=== PATIENT | male | born 1955 | race African-American/Black ===

== ENCOUNTER 2021-06-21 13:25 | Observation (INO) | payer OTHER ==
[2021-06-21 14:17] LABS: #Basophils 0.1 10x3/uL (0.0-0.2); #Eosinphils 0.5 10x3/uL (0.0-0.5); #Monocytes 0.6 10x3/uL (0.0-1.1); #Neutrophils 2.8 10x3/uL (1.5-8.4); %Basophils 1.1 % (0.0-2.0); %Eosinophils 8.9 % (0.0-6.0); %Lymphocytes 25.3 % (18.0-47.0); %Monocytes 10.8 % (0.0-10.0); %Neutrophils 53.7 % (40.0-75.0); Mean Corpuscular Volume 81.1 fl (81.2-95.1); Mean Platelet Volume 11.3 fl (7.4-10.4); Platelet Count 268 10x3/uL (150-450); RBC Distribution Width 14.9 % (11.5-14.5); Red Blood Cell (RBC) Count 5.39 10x6/uL (4.32-5.72); White Blood Cell (WBC) Count 5.3 10x3/uL (3.5-10.5)
[2021-06-21 14:34] LABS: ALT (SGPT) 14 U/L (8-55); AST (SGOT) 11 U/L (5-34); Albumin 3.7 g/dL (3.4-4.8); Alkaline Phosphatase 154 U/L (40-110); Anion Gap 13 mmol/L (10-20); BUN (Urea Nitrogen) 36 mg/dL (8.4-25.7); Bilirubin, Total 0.3 mg/dL (0.2-1.2); CK (CPK) 124 U/L (30-200); Calc. Creatinine Clearance 0 mL/min (70-130); Calcium 8.7 mg/dL (7.8-10.44); Carbon Dioxide 31 mmol/L (23-31); Chloride 95 mmol/L (98-107); Globulin 3.7 g/dL (2.4-3.5); Glucose 399 mg/dL (80-115); Lipase 23 U/L (8-78); Protein, Total 7.4 g/dL (5.8-8.1); Sodium 135 mmol/L (136-145)
[2021-06-21] MEDS ORDERED: Nitroglycerin 2% Ointment 1 INCH/1 GM Packet ONE (14:34)
[2021-06-21 15:59] LABS: SARS-CoV-2 NAA Rapid Test Not Detected (NotDetected)
[2021-06-21] MEDS ORDERED: Ondansetron PF 4 MG/2 ML Vial IVP PRN (16:45)
[2021-06-21] MEDS ORDERED: Nitroglycerin 0.4 MG TAB (25 Tab Bottle) SL PRN (16:45)
[2021-06-21] MEDS ORDERED: Dextrose 50% Abboject 50 ML SYRINGE SLOW IVP PRN (16:59)
[2021-06-21] MEDS ORDERED: HumaLOG 300 UNITS/3 ML VIAL SC PRN (16:59)
[2021-06-21] MEDS ORDERED: Dextrose 5% in Water 1,000 ML IV PRN (16:59)
[2021-06-21 17:28] LABS: Troponin I Less than 0.010 ng/mL (< 0.028)
[2021-06-21] MEDS ORDERED: hydrALAZINE 20 MG/ML VIAL SLOW IVP PRN (17:35)
[2021-06-21 20:14] VITALS: BMI 42.9
[2021-06-21 20:40] LABS: Troponin I Less than 0.010 ng/mL (< 0.028)
[2021-06-21] MEDS: Heparin 5,000 UNITS/ML VIAL SC SCH (21:00)
[2021-06-21] MEDS ORDERED: Metoprolol Tartrate 25 MG TAB PO SCH (21:00)
[2021-06-21] MEDS ORDERED: Atorvastatin Calcium 40 MG TAB PO SCH (21:00)
[2021-06-21] MEDS: hydrALAZINE 25 MG TAB PO SCH (21:14)
[2021-06-21] MEDS: HumaLOG 300 UNITS/3 ML VIAL SC PRN ×2 (21:23→21:25)
[2021-06-22 00:46] LABS: Bilirubin Neg (Negative); Blood, Urine Negative (Negative); Clarity Clear (Clear); Glucose, Urine (Dipstick) >=1000 mg/dL (Negative); Ketone, Urine Negative (Negative); Leukocyte Negative (Negative); Nitrite Negative (Negative); Protein, Urine (Dipstick) 30 mg/dl (Neg-Trace); Urobilinogen Normal mg/dL (Less than 2)
[2021-06-22 00:54] LABS: Bacteria/HPF None Seen HPF (None Seen); RBC/HPF 0-3 HPF (0-3); Squamous Epithelial None Seen HPF (0-3); WBC/HPF None Seen HPF (0-3)
[2021-06-22 00:55] LABS: Urine Culture Reflex No No
[2021-06-22] MEDS: Acetaminophen 325 MG TAB PO PRN ×2 (06:10→18:30)
[2021-06-22 06:56] LABS: Anion Gap 15 mmol/L (10-20); BUN (Urea Nitrogen) 29 mg/dL (8.4-25.7); Calc. Creatinine Clearance 94 mL/min (70-130); Calcium 9.2 mg/dL (7.8-10.44); Carbon Dioxide 25 mmol/L (23-31); Cardiac Risk 3.7 (Less than 4.5); Chloride 98 mmol/L (98-107); Cholesterol 209 mg/dl (< 200 Desired); Glucose 305 mg/dL (80-115); HDL Cholesterol 57 mg/dL (>60 Neg Risk); LDL Cholesterol, Calculated 121 mg/dL; Sodium 134 mmol/L (136-145); Triglycerides 156 mg/dL (Less than 150)
[2021-06-22] MEDS ORDERED: Furosemide 40 MG TAB PO SCH (07:30)
[2021-06-22] MEDS ORDERED: Aspirin Chewable 81 MG TAB PO SCH (09:00)
[2021-06-22] MEDS ORDERED: Amlodipine 5 MG TAB PO SCH (09:00)
[2021-06-22] MEDS ORDERED: Ezetimibe 10 MG TAB PO SCH (09:00)
[2021-06-22] MEDS: hydrALAZINE 25 MG TAB PO SCH (10:50)
[2021-06-22] MEDS: Carvedilol 25 MG TAB PO SCH ×2 (10:50→18:30)
[2021-06-22] MEDS: Heparin 5,000 UNITS/ML VIAL SC SCH ×2 (11:40→19:49)
[2021-06-22 11:59] VITALS: BP 142/75; TEMP 97.9
[2021-06-22 12:35] LABS: Hemoglobin A1c 12.6 % (4.0-6.0)
[2021-06-22 13:20] LABS: Sodium, Urine 114 mmol/L (Not Available); Urea Nitrogen, Random Urine 434 mg/dl
== END 2021-06-22 19:20 ==
LOC: CSHERS 13:25 → INTOOBSV 18:04 → CSHTELE 18:04 → EEVIPCON 18:04
PROVIDERS: ADMIT Internal Medicine; ATTEND Internal Medicine
DX: J96.21 Acute and chronic respiratory failure with hypoxia (principal); R07.9 Chest pain, unspecified; N17.9 Acute kidney failure, unspecified; E11.22 Type 2 diabetes mellitus with diabetic chronic kidney disease; I13.0 Hypertensive heart and chronic kidney disease with heart failure and stage 1 through stage 4 chronic kidney disease, or unspecified chronic kidney disease; N18.9 Chronic kidney disease, unspecified; I50.9 Heart failure, unspecified; Z79.899 Other long term (current) drug therapy; E78.5 Hyperlipidemia, unspecified; Z79.82 Long term (current) use of aspirin; Z79.4 Long term (current) use of insulin; Z87.891 Personal history of nicotine dependence; Z95.1 Presence of aortocoronary bypass graft; E66.01 Morbid (severe) obesity due to excess calories; Z20.822 Contact with and (suspected) exposure to COVID-19
CPT/HCPCS: 36415; 36416; 71045; 80048; 80053; 80061; 81001; 82550; 83036; 83690; 83880; 84300; 84484; 84540; 85025; 85379; 93005; 93306; J0360; J1644; J1815; U0002

== ENCOUNTER 2021-07-18 04:48 | Inpatient (IN) | payer OTHER ==
[2021-07-18 05:27] LABS: #Basophils 0.1 10x3/uL (0.0-0.2); #Eosinphils 0.3 10x3/uL (0.0-0.5); #Monocytes 0.8 10x3/uL (0.0-1.1); #Neutrophils 5.5 10x3/uL (1.5-8.4); %Basophils 0.6 % (0.0-2.0); %Lymphocytes 17.3 % (18.0-47.0); %Monocytes 9.4 % (0.0-10.0); %Neutrophils 68.3 % (40.0-75.0); Hemoglobin 12.8 g/dL (13.5-17.5); Mean Corpuscular HGB CONC 31.9 g/dL (32.0-36.0); Mean Corpuscular Hemoglobin 26.3 pg (27.0-33.0); Mean Corpuscular Volume 82.5 fl (81.2-95.1); Mean Platelet Volume 10.3 fl (7.4-10.4); Platelet Count 248 10x3/uL (150-450); RBC Distribution Width 15.3 % (11.5-14.5); Red Blood Cell (RBC) Count 4.86 10x6/uL (4.32-5.72)
[2021-07-18 05:42] LABS: ALT (SGPT) 15 U/L (8-55); AST (SGOT) 13 U/L (5-34); Albumin 3.4 g/dL (3.4-4.8); Alkaline Phosphatase 128 U/L (40-110); Anion Gap 14 mmol/L (10-20); BUN (Urea Nitrogen) 33 mg/dL (8.4-25.7); Bilirubin, Total 0.3 mg/dL (0.2-1.2); Calc. Creatinine Clearance 0 mL/min (70-130); Calcium 8.4 mg/dL (7.8-10.44); Carbon Dioxide 25 mmol/L (23-31); Chloride 106 mmol/L (98-107); Globulin 3.2 g/dL (2.4-3.5); Glucose 182 mg/dL (80-115); Magnesium 2.2 mg/dL (1.6-2.6); Potassium 4.2 mmol/L (3.5-5.1); Protein, Total 6.6 g/dL (5.8-8.1); Sodium 141 mmol/L (136-145)
[2021-07-18 06:05] LABS: SARS-CoV-2 NAA Rapid Test Not Detected (NotDetected)
[2021-07-18] MEDS ORDERED: Furosemide 40 MG/4 ML VIAL ONE (06:09)
[2021-07-18] MEDS ORDERED: diphenhydrAMINE 50 MG/ML VIAL ONE (06:49)
[2021-07-18] MEDS ORDERED: Acetaminophen 650 MG Suppository PR PRN (08:39)
[2021-07-18] MEDS ORDERED: Bisacodyl 5 MG TAB PO PRN (08:39)
[2021-07-18] MEDS ORDERED: Ondansetron ODT 4 MG TAB PO PRN (08:39)
[2021-07-18] MEDS ORDERED: Ondansetron PF 4 MG/2 ML Vial IVP PRN (08:39)
[2021-07-18] MEDS ORDERED: Bisacodyl 10 MG SUPP PR PRN (08:39)
[2021-07-18] MEDS ORDERED: Diltiazem 125 MG in Sodium Chloride 0.9% 100 ML IVPB SCH (08:45)
[2021-07-18] MEDS ORDERED: Dextrose 5% in Water 1,000 ML IV PRN (08:53)
[2021-07-18] MEDS ORDERED: Dextrose 50% Abboject 50 ML SYRINGE SLOW IVP PRN (08:53)
[2021-07-18] MEDS ORDERED: Enoxaparin Sodium 100 MG/ML SYRINGE ONE (09:20)
[2021-07-18 09:37] LABS: Troponin I Less than 0.010 ng/mL (< 0.028)
[2021-07-18] MEDS ORDERED: Famotidine 20 MG TAB PO SCH (11:00)
[2021-07-18] MEDS: Senokot S 8.6-50 MG TAB PO SCH (11:00)
[2021-07-18] MEDS: HYDROcodone/Acetaminophen 5/325 mg Tablet PO PRN ×2 (11:15→20:20)
[2021-07-18 11:23] LABS: Bilirubin Neg (Negative); Blood, Urine Negative (Negative); Clarity Clear (Clear); Glucose, Urine (Dipstick) Normal (Negative); Ketone, Urine Negative (Negative); Leukocyte Negative (Negative); Nitrite Negative (Negative); Urobilinogen Normal mg/dL (Less than 2)
[2021-07-18 11:27] LABS: Protein, Urine (Dipstick) 15 mg/dl (Neg-Trace); Urine Culture Reflex No No
[2021-07-18 11:31] LABS: Bacteria/HPF None Seen HPF (None Seen); RBC/HPF 0-3 HPF (0-3); Squamous Epithelial 0-3 HPF (0-3); WBC/HPF 0-3 HPF (0-3)
[2021-07-18 11:39] LABS: Legionella Urinary Ag Negative (Negative); Strep pneumo Urine Ag NEGATIVE (NEGATIVE)
[2021-07-18] MEDS ORDERED: Furosemide 100 MG/10 ML VIAL SLOW IVP SCH (14:00)
[2021-07-18] MEDS: HumaLOG 300 UNITS/3 ML VIAL SC PRN ×2 (16:28→20:21)
[2021-07-18] MEDS: Carvedilol 25 MG TAB PO SCH (16:29)
[2021-07-18] MEDS ORDERED: Docusate 100 MG CAP PO PRN (18:21)
[2021-07-18] MEDS: Apixaban 5 MG TAB PO SCH (20:14)
[2021-07-18] MEDS: Atorvastatin Calcium 40 MG TAB PO SCH (20:14)
[2021-07-18] MEDS: Famotidine 20 MG TAB PO SCH (20:15)
[2021-07-18] MEDS: Terazosin HCl 5 MG CAP PO SCH (20:16)
[2021-07-18] MEDS: NPH, Human Insulin Isophane 300 UNIT/3 ML VIAL SC SCH (20:21)
[2021-07-18] MEDS ORDERED: Citalopram 20 MG TAB PO SCH (21:00)
[2021-07-18] MEDS ORDERED: Nitroglycerin 2% Ointment 1 INCH/1 GM Packet TOP SCH (21:00)
[2021-07-18] MEDS ORDERED: hydrALAZINE 25 MG TAB PO SCH (21:00)
[2021-07-18] MEDS ORDERED: METHYLCELLULOSE 500 MG PO SCH (21:00)
[2021-07-19] MEDS: Famotidine/PF 20 mg/2ml Vial SLOW IVP SCH ×2 (01:57→14:56)
[2021-07-19] MEDS: Latanoprost 0.005% Ophth Soln 2.5 ml Bottle EA EYE SCH ×2 (01:58→20:40)
[2021-07-19] MEDS: Senokot S 8.6-50 MG TAB PO SCH ×3 (01:58→20:41)
[2021-07-19] MEDS: Hydrocerin (Eucerin) Cream 120 gm Jar TOP SCH ×2 (01:58→20:40)
[2021-07-19 04:39] LABS: CRP (Inflammatory) 7.95 mg/dL (= or < 0.5); Cardiac Risk 4.1 (Less than 4.5)
[2021-07-19] MEDS: Famotidine 20 MG TAB PO SCH ×2 (08:09→20:40)
[2021-07-19] MEDS: Carvedilol 25 MG TAB PO SCH ×2 (08:10→17:29)
[2021-07-19] MEDS: Aspirin 81 mg Enteric Coated Tablet PO SCH (08:10)
[2021-07-19] MEDS: Furosemide 40 MG TAB PO SCH (08:11)
[2021-07-19] MEDS: Apixaban 5 MG TAB PO SCH ×2 (08:11→20:39)
[2021-07-19] MEDS: HumaLOG 300 UNITS/3 ML VIAL SC PRN ×4 (08:24→20:59)
[2021-07-19] MEDS ORDERED: Amlodipine 5 MG TAB PO SCH (09:00)
[2021-07-19 09:01] LABS: #Basophils 0.1 10x3/uL (0.0-0.2); #Eosinphils 0.5 10x3/uL (0.0-0.5); #Monocytes 0.8 10x3/uL (0.0-1.1); #Neutrophils 4.8 10x3/uL (1.5-8.4); %Basophils 0.7 % (0.0-2.0); %Eosinophils 6.1 % (0.0-6.0); %Monocytes 10.9 % (0.0-10.0); %Neutrophils 63.2 % (40.0-75.0); Hemoglobin 13.3 g/dL (13.5-17.5); Mean Corpuscular HGB CONC 31.7 g/dL (32.0-36.0); Mean Corpuscular Hemoglobin 26.4 pg (27.0-33.0); Mean Corpuscular Volume 83.3 fl (81.2-95.1); Mean Platelet Volume 10.3 fl (7.4-10.4); Platelet Count 260 10x3/uL (150-450); RBC Distribution Width 15.1 % (11.5-14.5); Red Blood Cell (RBC) Count 5.04 10x6/uL (4.32-5.72); White Blood Cell (WBC) Count 7.5 10x3/uL (3.5-10.5)
[2021-07-19 09:08] LABS: Prothrombin Time 10.9 sec (9.5-12.1)
[2021-07-19] MEDS: NPH, Human Insulin Isophane 300 UNIT/3 ML VIAL SC SCH ×2 (09:25→21:00)
[2021-07-19 09:27] LABS: Anion Gap 12 mmol/L (10-20); BUN (Urea Nitrogen) 25 mg/dL (8.4-25.7); Calc. Creatinine Clearance 105 mL/min (70-130); Calcium 8.7 mg/dL (7.8-10.44); Carbon Dioxide 30 mmol/L (23-31); Chloride 103 mmol/L (98-107); Glucose 170 mg/dL (80-115); Potassium 4.1 mmol/L (3.5-5.1); Sodium 141 mmol/L (136-145)
[2021-07-19 13:58] LABS: Magnesium 2.2 mg/dL (1.6-2.6)
[2021-07-19 14:31] LABS: Hemoglobin A1c 12.2 % (4.0-6.0)
[2021-07-19] MEDS: HYDROcodone/Acetaminophen 5/325 mg Tablet PO PRN (17:32)
[2021-07-19] MEDS: Atorvastatin Calcium 40 MG TAB PO SCH (20:39)
[2021-07-19] MEDS: carBAMazepine 200 MG TAB PO SCH (20:40)
[2021-07-19] MEDS: Terazosin HCl 5 MG CAP PO SCH (20:41)
[2021-07-19] MEDS: risperiDONE 1 MG TAB PO SCH (20:41)
[2021-07-20 04:00] LABS: #Eosinphils 0.4 10x3/uL (0.0-0.5); #Monocytes 0.6 10x3/uL (0.0-1.1); #Neutrophils 4.8 10x3/uL (1.5-8.4); %Basophils 0.5 % (0.0-2.0); %Eosinophils 4.9 % (0.0-6.0); %Lymphocytes 20.2 % (18.0-47.0); %Monocytes 8.7 % (0.0-10.0); %Neutrophils 65.4 % (40.0-75.0); Mean Corpuscular HGB CONC 32.2 g/dL (32.0-36.0); Mean Corpuscular Hemoglobin 26.5 pg (27.0-33.0); Mean Corpuscular Volume 82.3 fl (81.2-95.1); Mean Platelet Volume 10.5 fl (7.4-10.4); Platelet Count 246 10x3/uL (150-450); Red Blood Cell (RBC) Count 4.91 10x6/uL (4.32-5.72); White Blood Cell (WBC) Count 7.3 10x3/uL (3.5-10.5)
[2021-07-20 04:13] LABS: Anion Gap 12 mmol/L (10-20); BUN (Urea Nitrogen) 26 mg/dL (8.4-25.7); Calc. Creatinine Clearance 96 mL/min (70-130); Calcium 8.8 mg/dL (7.8-10.44); Carbon Dioxide 28 mmol/L (23-31); Chloride 106 mmol/L (98-107); Glucose 149 mg/dL (80-115); Magnesium 2.1 mg/dL (1.6-2.6); Phosphorus 2.7 mg/dL (2.3-4.7); Sodium 142 mmol/L (136-145)
[2021-07-20 08:18] LABS: ALT (SGPT) 14 U/L (8-55); AST (SGOT) 11 U/L (5-34); Albumin 3.2 g/dL (3.4-4.8); Alkaline Phosphatase 109 U/L (40-110); Bilirubin, Direct 0.2 mg/dL (0.1-0.3); Bilirubin, Total 0.3 mg/dL (0.2-1.2); Protein, Total 6.7 g/dL (5.8-8.1)
[2021-07-20] MEDS: hydrALAZINE 25 MG TAB PO SCH ×2 (08:38→20:52)
[2021-07-20] MEDS: Carvedilol 25 MG TAB PO SCH ×2 (08:38→17:05)
[2021-07-20] MEDS: Senokot S 8.6-50 MG TAB PO SCH ×2 (08:39→20:54)
[2021-07-20] MEDS: Famotidine 20 MG TAB PO SCH ×2 (08:39→20:52)
[2021-07-20] MEDS: carBAMazepine 200 MG TAB PO SCH ×2 (08:39→20:51)
[2021-07-20] MEDS: Aspirin 81 mg Enteric Coated Tablet PO SCH (08:39)
[2021-07-20] MEDS: Apixaban 5 MG TAB PO SCH ×2 (08:39→20:51)
[2021-07-20] MEDS: NPH, Human Insulin Isophane 300 UNIT/3 ML VIAL SC SCH ×2 (08:39→21:01)
[2021-07-20] MEDS: Furosemide 40 MG TAB PO SCH (08:39)
[2021-07-20] MEDS: HYDROcodone/Acetaminophen 5/325 mg Tablet PO PRN ×3 (08:47→21:24)
[2021-07-20] MEDS: Atorvastatin Calcium 40 MG TAB PO SCH (20:51)
[2021-07-20] MEDS: Citalopram 20 MG TAB PO SCH (20:52)
[2021-07-20] MEDS: risperiDONE 1 MG TAB PO SCH (20:53)
[2021-07-20] MEDS: Latanoprost 0.005% Ophth Soln 2.5 ml Bottle EA EYE SCH (20:53)
[2021-07-20] MEDS: HumaLOG 300 UNITS/3 ML VIAL SC PRN (20:59)
[2021-07-20] MEDS: Hydrocerin (Eucerin) Cream 120 gm Jar TOP SCH (21:24)
[2021-07-20] MEDS: Terazosin HCl 5 MG CAP PO SCH (21:25)
[2021-07-21 04:20] LABS: #Basophils 0.1 10x3/uL (0.0-0.2); #Eosinphils 0.4 10x3/uL (0.0-0.5); #Monocytes 0.5 10x3/uL (0.0-1.1); #Neutrophils 3.3 10x3/uL (1.5-8.4); %Basophils 0.9 % (0.0-2.0); %Eosinophils 6.6 % (0.0-6.0); %Lymphocytes 26.7 % (18.0-47.0); %Neutrophils 56.6 % (40.0-75.0); Hemoglobin 12.9 g/dL (13.5-17.5); Mean Corpuscular HGB CONC 31.8 g/dL (32.0-36.0); Mean Corpuscular Hemoglobin 26.4 pg (27.0-33.0); Mean Platelet Volume 9.9 fl (7.4-10.4); Platelet Count 250 10x3/uL (150-450); RBC Distribution Width 15.2 % (11.5-14.5); Red Blood Cell (RBC) Count 4.89 10x6/uL (4.32-5.72); White Blood Cell (WBC) Count 5.9 10x3/uL (3.5-10.5)
[2021-07-21 04:41] LABS: Anion Gap 13 mmol/L (10-20); BUN (Urea Nitrogen) 27 mg/dL (8.4-25.7); Calc. Creatinine Clearance 100 mL/min (70-130); Calcium 8.7 mg/dL (7.8-10.44); Carbon Dioxide 27 mmol/L (23-31); Chloride 104 mmol/L (98-107); Glucose 293 mg/dL (80-115); Magnesium 2.1 mg/dL (1.6-2.6); Phosphorus 3.8 mg/dL (2.3-4.7); Potassium 4.1 mmol/L (3.5-5.1); Sodium 140 mmol/L (136-145)
[2021-07-21 05:15] VITALS: BMI 44.1
[2021-07-21] MEDS: HumaLOG 300 UNITS/3 ML VIAL SC PRN ×3 (05:20→16:24)
[2021-07-21] MEDS: HYDROcodone/Acetaminophen 5/325 mg Tablet PO PRN ×4 (05:22→21:41)
[2021-07-21] MEDS: Furosemide 40 MG/4 ML VIAL SLOW IVP SCH ×2 (05:56→14:16)
[2021-07-21] MEDS: Aspirin 81 mg Enteric Coated Tablet PO SCH (09:02)
[2021-07-21] MEDS: Senokot S 8.6-50 MG TAB PO SCH ×2 (09:02→21:45)
[2021-07-21] MEDS: hydrALAZINE 25 MG TAB PO SCH ×2 (09:02→21:45)
[2021-07-21] MEDS: carBAMazepine 200 MG TAB PO SCH ×3 (09:03→22:09)
[2021-07-21] MEDS: Allopurinol 100 MG TAB PO SCH (09:03)
[2021-07-21] MEDS: Famotidine 20 MG TAB PO SCH ×2 (09:04→21:46)
[2021-07-21] MEDS: Apixaban 5 MG TAB PO SCH ×2 (09:04→21:46)
[2021-07-21] MEDS: Carvedilol 25 MG TAB PO SCH ×2 (09:04→16:24)
[2021-07-21] MEDS: NPH, Human Insulin Isophane 300 UNIT/3 ML VIAL SC SCH ×2 (09:05→22:01)
[2021-07-21] MEDS ORDERED: Amiodarone 200 MG TAB PO SCH (11:30)
[2021-07-21] MEDS: Acetaminophen 325 MG TAB PO PRN (12:47)
[2021-07-21] MEDS: Terazosin HCl 5 MG CAP PO SCH (21:43)
[2021-07-21] MEDS: Hydrocerin (Eucerin) Cream 120 gm Jar TOP SCH (21:44)
[2021-07-21] MEDS: Atorvastatin Calcium 40 MG TAB PO SCH (21:45)
[2021-07-21] MEDS: risperiDONE 1 MG TAB PO SCH (21:46)
[2021-07-21] MEDS: Latanoprost 0.005% Ophth Soln 2.5 ml Bottle EA EYE SCH (21:47)
[2021-07-21] MEDS: Amiodarone 200 MG TAB PO SCH (21:47)
[2021-07-21] MEDS: Citalopram 20 MG TAB PO SCH (21:47)
[2021-07-22 04:37] LABS: Anion Gap 12 mmol/L (10-20); BUN (Urea Nitrogen) 31 mg/dL (8.4-25.7); Calc. Creatinine Clearance 87 mL/min (70-130); Calcium 8.5 mg/dL (7.8-10.44); Carbon Dioxide 27 mmol/L (23-31); Chloride 102 mmol/L (98-107); Glucose 309 mg/dL (80-115); Phosphorus 2.9 mg/dL (2.3-4.7); Potassium 3.9 mmol/L (3.5-5.1); Sodium 137 mmol/L (136-145)
[2021-07-22 04:44] LABS: #Eosinphils 0.4 10x3/uL (0.0-0.5); #Monocytes 0.6 10x3/uL (0.0-1.1); #Neutrophils 4.1 10x3/uL (1.5-8.4); %Basophils 0.6 % (0.0-2.0); %Eosinophils 6.1 % (0.0-6.0); %Lymphocytes 22.1 % (18.0-47.0); %Monocytes 9.1 % (0.0-10.0); %Neutrophils 61.8 % (40.0-75.0); Hemoglobin 12.5 g/dL (13.5-17.5); Mean Corpuscular HGB CONC 31.7 g/dL (32.0-36.0); Mean Corpuscular Hemoglobin 26.3 pg (27.0-33.0); Mean Corpuscular Volume 82.8 fl (81.2-95.1); Mean Platelet Volume 10.2 fl (7.4-10.4); Platelet Count 244 10x3/uL (150-450); RBC Distribution Width 15.1 % (11.5-14.5); Red Blood Cell (RBC) Count 4.76 10x6/uL (4.32-5.72); White Blood Cell (WBC) Count 6.7 10x3/uL (3.5-10.5)
[2021-07-22] MEDS: Furosemide 40 MG/4 ML VIAL SLOW IVP SCH (06:18)
[2021-07-22] MEDS: HumaLOG 300 UNITS/3 ML VIAL SC PRN ×4 (06:19→20:38)
[2021-07-22] MEDS: HYDROcodone/Acetaminophen 5/325 mg Tablet PO PRN ×4 (06:20→20:43)
[2021-07-22] MEDS: hydrALAZINE 25 MG TAB PO SCH ×2 (10:04→20:36)
[2021-07-22] MEDS: Senokot S 8.6-50 MG TAB PO SCH ×2 (10:04→20:37)
[2021-07-22] MEDS: Furosemide 40 MG TAB PO SCH ×2 (10:04→14:12)
[2021-07-22] MEDS: carBAMazepine 200 MG TAB PO SCH ×2 (10:05→20:35)
[2021-07-22] MEDS: Acetaminophen 325 MG TAB PO PRN (10:06)
[2021-07-22] MEDS: Aspirin 81 mg Enteric Coated Tablet PO SCH (10:07)
[2021-07-22] MEDS: Allopurinol 100 MG TAB PO SCH (10:07)
[2021-07-22] MEDS: Carvedilol 25 MG TAB PO SCH ×2 (10:08→17:35)
[2021-07-22] MEDS: Apixaban 5 MG TAB PO SCH ×2 (10:08→20:36)
[2021-07-22] MEDS: Amiodarone 200 MG TAB PO SCH ×2 (10:09→20:35)
[2021-07-22] MEDS: Famotidine 20 MG TAB PO SCH ×2 (10:09→20:37)
[2021-07-22] MEDS: NPH, Human Insulin Isophane 300 UNIT/3 ML VIAL SC SCH ×2 (10:12→20:39)
[2021-07-22] MEDS ORDERED: Milk Of Magnesia 30 ML UDCUP PO SCH (10:45)
[2021-07-22] MEDS: Terazosin HCl 5 MG CAP PO SCH (20:34)
[2021-07-22] MEDS: Atorvastatin Calcium 40 MG TAB PO SCH (20:35)
[2021-07-22] MEDS: risperiDONE 1 MG TAB PO SCH (20:36)
[2021-07-22] MEDS: Citalopram 20 MG TAB PO SCH (20:36)
[2021-07-22] MEDS: Hydrocerin (Eucerin) Cream 120 gm Jar TOP SCH (20:37)
[2021-07-22] MEDS: Latanoprost 0.005% Ophth Soln 2.5 ml Bottle EA EYE SCH (20:38)
[2021-07-22 20:52] VITALS: BP 144/65
[2021-07-22 23:18] VITALS: TEMP 97.2
== END 2021-07-22 20:45 | DRG 308 ==
LOC: SUATTDRO 04:48 → EEVIPCON 04:48 → CSHERS 04:48 → UNDOADMIN 09:51 → CSHIMCU 09:51 → CSHTELE 07-19 14:20 → CSHIMCU 07-19 14:20 → UNDOADMIN 07-19 17:15 → CSHIMCU 07-19 17:15 → CSHTELE 07-19 17:15 → CSHIMCU 07-19 17:18 → CSHTELE 07-20 07:28
PROVIDERS: ADMIT Family Medicine; ATTEND Family Medicine
DX: I48.92 Unspecified atrial flutter (principal); J96.01 Acute respiratory failure with hypoxia; G93.41 Metabolic encephalopathy; Z68.41 Body mass index [BMI] 40.0-44.9, adult; I13.0 Hypertensive heart and chronic kidney disease with heart failure and stage 1 through stage 4 chronic kidney disease, or unspecified chronic kidney disease; I50.32 Chronic diastolic (congestive) heart failure; Z20.822 Contact with and (suspected) exposure to COVID-19; F32.A Depression, unspecified; F20.9 Schizophrenia, unspecified; E11.22 Type 2 diabetes mellitus with diabetic chronic kidney disease; E66.01 Morbid (severe) obesity due to excess calories; N18.9 Chronic kidney disease, unspecified; E78.5 Hyperlipidemia, unspecified; I25.10 Atherosclerotic heart disease of native coronary artery without angina pectoris; R59.0 Localized enlarged lymph nodes; D64.9 Anemia, unspecified; J44.9 Chronic obstructive pulmonary disease, unspecified; E11.65 Type 2 diabetes mellitus with hyperglycemia; Z79.4 Long term (current) use of insulin; Z95.1 Presence of aortocoronary bypass graft; Z91.041 Radiographic dye allergy status; Z79.82 Long term (current) use of aspirin; Z79.899 Other long term (current) drug therapy; Z98.890 Other specified postprocedural states
CPT/HCPCS: 0240U; 36415; 36416; 71045; 71275; 74018; 80048; 80053; 80061; 80076; 81001; 83036; 83605; 83735; 83880; 84100; 84145; 84443; 84484; 85025; 85379; 85610; 86140; 87040; 87449; 87899; 93005; 93010; 94640; 94660; 94760; 96365; 96366; 96372; 96375; J1200; J1650; J1815; J1940; J7620

== ENCOUNTER 2021-07-25 08:09 | Emergency (ER) | payer OTHER ==
[2021-07-25 08:58] LABS: #Basophils 0.1 10x3/uL (0.0-0.2); #Eosinphils 0.6 10x3/uL (0.0-0.5); #Monocytes 0.9 10x3/uL (0.0-1.1); #Neutrophils 5.5 10x3/uL (1.5-8.4); %Basophils 0.7 % (0.0-2.0); %Eosinophils 6.6 % (0.0-6.0); %Lymphocytes 21.9 % (18.0-47.0); %Monocytes 9.6 % (0.0-10.0); %Neutrophils 60.9 % (40.0-75.0); Hemoglobin 12.8 g/dL (13.5-17.5); Mean Corpuscular HGB CONC 30.5 g/dL (32.0-36.0); Mean Corpuscular Hemoglobin 26.3 pg (27.0-33.0); Mean Corpuscular Volume 86.2 fl (81.2-95.1); Mean Platelet Volume 9.4 fl (7.4-10.4); Platelet Count 268 10x3/uL (150-450); RBC Distribution Width 15.2 % (11.5-14.5); Red Blood Cell (RBC) Count 4.86 10x6/uL (4.32-5.72); White Blood Cell (WBC) Count 9.1 10x3/uL (3.5-10.5)
[2021-07-25 09:16] LABS: ALT (SGPT) 17 U/L (8-55); AST (SGOT) 11 U/L (5-34); Albumin 3.6 g/dL (3.4-4.8); Alkaline Phosphatase 154 U/L (40-110); Anion Gap 17 mmol/L (10-20); BUN (Urea Nitrogen) 33 mg/dL (8.4-25.7); Bilirubin, Total 0.3 mg/dL (0.2-1.2); Calc. Creatinine Clearance 0 mL/min (70-130); Calcium 8.1 mg/dL (7.8-10.44); Carbon Dioxide 20 mmol/L (23-31); Chloride 106 mmol/L (98-107); Globulin 3.3 g/dL (2.4-3.5); Glucose 208 mg/dL (80-115); Potassium 4.3 mmol/L (3.5-5.1); Protein, Total 6.9 g/dL (5.8-8.1); Sodium 139 mmol/L (136-145)
[2021-07-25 10:16] LABS: SARS-CoV-2 NAA Rapid Test Not Detected (NotDetected)
[2021-07-25] MEDS ORDERED: Furosemide 100 MG/10 ML VIAL ONE (10:57)
== END 2021-07-25 16:44 | disposition short-term general hospital (02) ==
LOC: CSHERS 08:09
DX: I13.0 Hypertensive heart and chronic kidney disease with heart failure and stage 1 through stage 4 chronic kidney disease, or unspecified chronic kidney disease (principal); I50.41 Acute combined systolic (congestive) and diastolic (congestive) heart failure; N18.9 Chronic kidney disease, unspecified; N17.9 Acute kidney failure, unspecified; E87.70 Fluid overload, unspecified; I25.10 Atherosclerotic heart disease of native coronary artery without angina pectoris; J44.9 Chronic obstructive pulmonary disease, unspecified; Z86.73 Personal history of transient ischemic attack (TIA), and cerebral infarction without residual deficits; E11.9 Type 2 diabetes mellitus without complications; E78.5 Hyperlipidemia, unspecified; Z79.899 Other long term (current) drug therapy; Z79.82 Long term (current) use of aspirin; Z79.4 Long term (current) use of insulin; Z20.822 Contact with and (suspected) exposure to COVID-19
CPT/HCPCS: 36415; 71045; 80053; 83880; 84484; 85025; 93005; 96374; J1940; U0002

== ENCOUNTER 2021-09-15 23:31 | Observation (INO) | payer OTHER ==
[2021-09-15] MEDS ORDERED: Furosemide 40 MG/4 ML VIAL ONE (23:57)
[2021-09-16 00:22] LABS: ALT (SGPT) 7 U/L (8-55); AST (SGOT) 10 U/L (5-34); Albumin 3.7 g/dL (3.4-4.8); Alkaline Phosphatase 97 U/L (40-110); Anion Gap 12 mmol/L (10-20); BUN (Urea Nitrogen) 34 mg/dL (8.4-25.7); Bilirubin, Total 0.4 mg/dL (0.2-1.2); Calc. Creatinine Clearance 0 mL/min (70-130); Calcium 8.6 mg/dL (7.8-10.44); Carbon Dioxide 29 mmol/L (23-31); Chloride 104 mmol/L (98-107); Glucose 96 mg/dL (80-115); Magnesium 2.1 mg/dL (1.6-2.6); Potassium 3.4 mmol/L (3.5-5.1); Protein, Total 6.7 g/dL (5.8-8.1); Sodium 142 mmol/L (136-145)
[2021-09-16 00:36] LABS: #Eosinphils 0.5 10x3/uL (0.0-0.5); #Monocytes 0.8 10x3/uL (0.0-1.1); #Neutrophils 4.8 10x3/uL (1.5-8.4); %Basophils 0.6 % (0.0-2.0); %Eosinophils 6.6 % (0.0-6.0); %Lymphocytes 15.4 % (18.0-47.0); %Monocytes 11.1 % (0.0-10.0); %Neutrophils 65.9 % (40.0-75.0); Hemoglobin 12.4 g/dL (13.5-17.5); Mean Corpuscular Hemoglobin 26.2 pg (27.0-33.0); Mean Corpuscular Volume 81.9 fl (81.2-95.1); Mean Platelet Volume 9.5 fl (7.4-10.4); Platelet Count 317 10x3/uL (150-450); RBC Distribution Width 15.2 % (11.5-14.5); Red Blood Cell (RBC) Count 4.74 10x6/uL (4.32-5.72); White Blood Cell (WBC) Count 7.3 10x3/uL (3.5-10.5)
[2021-09-16 01:03] LABS: SARS-CoV-2 NAA Rapid Test Not Detected (NotDetected)
[2021-09-16] MEDS ORDERED: Acetaminophen 500 MG TAB ONE (01:29)
[2021-09-16 03:25] VITALS: BMI 47.5
[2021-09-16] MEDS ORDERED: Nitroglycerin 0.4 MG TAB (25 Tab Bottle) SL PRN (03:25)
[2021-09-16] MEDS ORDERED: Potassium Chloride 20 MEQ TAB PO SCH (03:30)
[2021-09-16 05:25] LABS: INR-International Normal Ratio 1.1; Prothrombin Time 12.1 sec (9.5-12.1)
[2021-09-16 05:34] LABS: Troponin I 0.025 ng/mL (< 0.028)
[2021-09-16 06:04] LABS: Magnesium 2.1 mg/dL (1.6-2.6)
[2021-09-16] MEDS: Allopurinol 100 MG TAB PO SCH (08:11)
[2021-09-16] MEDS: Amiodarone 200 MG TAB PO SCH ×2 (08:11→21:03)
[2021-09-16] MEDS: Docusate 100 MG CAP PO SCH ×2 (08:11→21:04)
[2021-09-16] MEDS: hydrALAZINE 25 MG TAB PO SCH ×2 (08:12→21:04)
[2021-09-16] MEDS: diphenhydrAMINE 25 MG CAP PO SCH ×2 (08:12→21:03)
[2021-09-16] MEDS: Amlodipine 5 MG TAB PO SCH (08:12)
[2021-09-16] MEDS: Loratadine 10 MG TAB PO SCH (08:12)
[2021-09-16] MEDS: Lisinopril 5 MG TAB PO SCH (08:12)
[2021-09-16] MEDS: Aspirin 81 mg Enteric Coated Tablet PO SCH (08:12)
[2021-09-16] MEDS: Divalproex Sodium 250 MG (DR) TAB PO SCH ×2 (08:13→21:03)
[2021-09-16 08:23] LABS: #Basophils 0.1 10x3/uL (0.0-0.2); #Eosinphils 0.5 10x3/uL (0.0-0.5); #Neutrophils 4.3 10x3/uL (1.5-8.4); %Basophils 0.9 % (0.0-2.0); %Eosinophils 6.8 % (0.0-6.0); %Lymphocytes 17.6 % (18.0-47.0); %Monocytes 13.9 % (0.0-10.0); %Neutrophils 60.4 % (40.0-75.0); Hemoglobin 12.1 g/dL (13.5-17.5); Mean Corpuscular HGB CONC 31.4 g/dL (32.0-36.0); Mean Corpuscular Hemoglobin 26.3 pg (27.0-33.0); Mean Corpuscular Volume 83.7 fl (81.2-95.1); Mean Platelet Volume 10.1 fl (7.4-10.4); Platelet Count 306 10x3/uL (150-450); RBC Distribution Width 15.7 % (11.5-14.5); White Blood Cell (WBC) Count 7.1 10x3/uL (3.5-10.5)
[2021-09-16 08:37] LABS: Anion Gap 11 mmol/L (10-20); BUN (Urea Nitrogen) 34 mg/dL (8.4-25.7); Calc. Creatinine Clearance 81 mL/min (70-130); Calcium 8.6 mg/dL (7.8-10.44); Carbon Dioxide 31 mmol/L (23-31); Chloride 104 mmol/L (98-107); Glucose 89 mg/dL (80-115); Potassium 4.3 mmol/L (3.5-5.1); Sodium 142 mmol/L (136-145)
[2021-09-16 08:42] LABS: Troponin I 0.018 ng/mL (< 0.028)
[2021-09-16] MEDS ORDERED: Bumetanide 1 MG TAB PO SCH (09:00)
[2021-09-16] MEDS ORDERED: Polyethylene Glycol 3350 17 GM Packet PO PRN (10:27)
[2021-09-16] MEDS ORDERED: Docusate 100 MG CAP PO SCH (11:00)
[2021-09-16] MEDS ORDERED: Polyethylene Glycol 3350 17 GM Packet PO SCH (11:00)
[2021-09-16] MEDS ORDERED: HYDROcodone/Acetaminophen 5/325 mg Tablet PO PRN (16:55)
[2021-09-16] MEDS ORDERED: Warfarin Sodium 2.5 MG TAB PO SCH (17:00)
[2021-09-16] MEDS: Acetaminophen 325 MG TAB PO PRN (17:10)
[2021-09-16] MEDS ORDERED: Latanoprost 0.005% Ophth Soln 2.5 ml Bottle EA EYE SCH (21:00)
[2021-09-16] MEDS ORDERED: Citalopram 20 MG TAB PO SCH (21:00)
[2021-09-16] MEDS ORDERED: Atorvastatin Calcium 40 MG TAB PO SCH (21:00)
[2021-09-16] MEDS ORDERED: Terazosin HCl 5 MG CAP PO SCH (21:00)
[2021-09-16] MEDS ORDERED: MINERAL OIL TOP SCH (21:00)
[2021-09-16] MEDS ORDERED: LANOLIN TOP SCH (21:00)
[2021-09-16] MEDS ORDERED: risperiDONE 1 MG TAB PO SCH (21:00)
[2021-09-17 05:00] LABS: INR-International Normal Ratio 1.1; Prothrombin Time 11.9 sec (9.5-12.1)
[2021-09-17 05:01] LABS: Anion Gap 12 mmol/L (10-20); BUN (Urea Nitrogen) 36 mg/dL (8.4-25.7); Calc. Creatinine Clearance 79 mL/min (70-130); Calcium 8.6 mg/dL (7.8-10.44); Carbon Dioxide 28 mmol/L (23-31); Chloride 105 mmol/L (98-107); Glucose 229 mg/dL (80-115); Potassium 4.5 mmol/L (3.5-5.1); Sodium 140 mmol/L (136-145)
[2021-09-17] MEDS ORDERED: Sodium Chloride 0.9% 1,000 ML IV SCH (07:45)
[2021-09-17] MEDS ORDERED: diphenhydrAMINE 25 MG CAP PO PRN (07:47)
[2021-09-17] MEDS: Amiodarone 200 MG TAB PO SCH (08:25)
[2021-09-17] MEDS: Loratadine 10 MG TAB PO SCH (08:25)
[2021-09-17] MEDS: Lisinopril 5 MG TAB PO SCH (08:26)
[2021-09-17] MEDS: Allopurinol 100 MG TAB PO SCH (08:26)
[2021-09-17] MEDS: Docusate 100 MG CAP PO SCH (08:26)
[2021-09-17] MEDS: Aspirin 81 mg Enteric Coated Tablet PO SCH (08:27)
[2021-09-17] MEDS: hydrALAZINE 25 MG TAB PO SCH (08:27)
[2021-09-17] MEDS: Amlodipine 5 MG TAB PO SCH (08:27)
[2021-09-17] MEDS: Divalproex Sodium 250 MG (DR) TAB PO SCH (08:28)
[2021-09-17] MEDS ORDERED: Docusate 100 MG CAP PO SCH (09:00)
[2021-09-17] MEDS: Acetaminophen 325 MG TAB PO PRN (15:39)
[2021-09-17 16:40] VITALS: BP 130/49; TEMP 98.7
[2021-09-17] MEDS ORDERED: Warfarin Sodium 2.5 MG TAB PO SCH (17:00)
[2021-09-17] MEDS ORDERED: Bumetanide 1 MG TAB PO SCH (21:00)
== END 2021-09-17 17:44 ==
LOC: CSHERS 23:31 → INTOOBSV 09-16 02:50 → EEVIPCON 09-16 02:50 → CSHICU 09-16 02:50
PROVIDERS: ADMIT Family Medicine; ATTEND Internal Medicine
DX: R55 Syncope and collapse (principal); E11.649 Type 2 diabetes mellitus with hypoglycemia without coma; I11.0 Hypertensive heart disease with heart failure; I50.9 Heart failure, unspecified; I25.10 Atherosclerotic heart disease of native coronary artery without angina pectoris; J44.9 Chronic obstructive pulmonary disease, unspecified; Z79.01 Long term (current) use of anticoagulants; E78.2 Mixed hyperlipidemia; G47.33 Obstructive sleep apnea (adult) (pediatric); Z79.899 Other long term (current) drug therapy; Z79.82 Long term (current) use of aspirin; Z99.81 Dependence on supplemental oxygen; Z95.1 Presence of aortocoronary bypass graft; Z87.891 Personal history of nicotine dependence; E87.6 Hypokalemia; F25.9 Schizoaffective disorder, unspecified; N40.0 Benign prostatic hyperplasia without lower urinary tract symptoms; Z20.822 Contact with and (suspected) exposure to COVID-19
CPT/HCPCS: 36415; 36416; 70450; 71045; 72125; 80048; 80053; 83735; 83880; 84484; 85025; 85610; 93005; 93010; 93306; 94660; 94760; 96374; G0378; J1940; J7050; U0002

== ENCOUNTER 2021-09-29 16:04 | Emergency (ER) | payer OTHER ==
[2021-09-29] MEDS ORDERED: Magnesium 2 GM/50 ML BAG (IN WATER) ONE (16:22)
[2021-09-29] MEDS ORDERED: predniSONE 20 MG TAB ONE (16:22)
[2021-09-29] MEDS ORDERED: Furosemide 40 MG/4 ML VIAL ONE (16:25)
[2021-09-29 16:34] LABS: Actual Bicarbonate (HCO3v) 27 mEq/L (22-28); Base Excess 2.6 mEq/L (-2.0 to +3.0); Calcium, Ionized (venous) 1.03 mmol/L (1.16-1.32); Chloride (VBG) 103 mmol/L (98-106); Hemoglobin (Hb) 12.8 g/dL (13.1-17.2); Potassium (VBG) 3.82 mmol/L (3.70-5.30); Puncture Site Other Site; RapidComm Collect By CBN; Sodium 138.3 mmol/L (133-146); pH (venous) 7.43 (7.32-7.43)
[2021-09-29 16:43] LABS: #Basophils 0.1 10x3/uL (0.0-0.2); #Eosinphils 0.1 10x3/uL (0.0-0.5); #Monocytes 1.1 10x3/uL (0.0-1.1); #Neutrophils 5.3 10x3/uL (1.5-8.4); %Basophils 0.7 % (0.0-2.0); %Eosinophils 1.8 % (0.0-6.0); %Lymphocytes 12.6 % (18.0-47.0); %Monocytes 14.6 % (0.0-10.0); %Neutrophils 69.9 % (40.0-75.0); Hemoglobin 11.5 g/dL (13.5-17.5); Mean Corpuscular Hemoglobin 25.2 pg (27.0-33.0); Mean Corpuscular Volume 81.4 fl (81.2-95.1); Platelet Count 306 10x3/uL (150-450); RBC Distribution Width 16.6 % (11.5-14.5); Red Blood Cell (RBC) Count 4.56 10x6/uL (4.32-5.72); White Blood Cell (WBC) Count 7.6 10x3/uL (3.5-10.5)
[2021-09-29 16:50] LABS: INR-International Normal Ratio 1.4; PTT 35.3 sec (22.0-33.0); Prothrombin Time 15.4 sec (9.5-12.1)
[2021-09-29 17:53] LABS: ALT (SGPT) 38 U/L (8-55); AST (SGOT) 26 U/L (5-34); Albumin 3.9 g/dL (3.4-4.8); Alkaline Phosphatase 94 U/L (40-110); Anion Gap 14 mmol/L (10-20); BUN (Urea Nitrogen) 39 mg/dL (8.4-25.7); Bilirubin, Total 0.5 mg/dL (0.2-1.2); Calc. Creatinine Clearance 0 mL/min (70-130); Calcium 8.5 mg/dL (7.8-10.44); Carbon Dioxide 28 mmol/L (23-31); Chloride 103 mmol/L (98-107); Globulin 3.1 g/dL (2.4-3.5); Glucose 71 mg/dL (80-115); Potassium 3.9 mmol/L (3.5-5.1); Sodium 141 mmol/L (136-145)
[2021-09-29 18:15] LABS: CKMB 1.9 ng/mL (0-6.6)
[2021-09-29 18:16] LABS: SARS-CoV-2 NAA Rapid Test Not Detected (NotDetected)
[2021-09-29] MEDS ORDERED: Nitroglycerin 2% Ointment 1 INCH/1 GM Packet ONE (18:23)
[2021-09-29] MEDS ORDERED: Albuterol Sulfate 2.5 mg/3 ml Neb ONE (20:34)
[2021-09-29] MEDS ORDERED: Aspirin Chewable 81 MG TAB ONE (20:55)
[2021-09-29] MEDS ORDERED: Enoxaparin Sodium 100 MG/ML SYRINGE ONE (21:53)
== END 2021-09-30 00:32 | disposition short-term general hospital (02) ==
LOC: CSHERS 16:04 → EEVIPCON 16:04 → CSHERS 09-30 00:32
DX: I13.0 Hypertensive heart and chronic kidney disease with heart failure and stage 1 through stage 4 chronic kidney disease, or unspecified chronic kidney disease (principal); I50.9 Heart failure, unspecified; R09.02 Hypoxemia; R06.03 Acute respiratory distress; I48.91 Unspecified atrial fibrillation; I25.10 Atherosclerotic heart disease of native coronary artery without angina pectoris; J44.9 Chronic obstructive pulmonary disease, unspecified; N18.9 Chronic kidney disease, unspecified; G47.30 Sleep apnea, unspecified; E78.5 Hyperlipidemia, unspecified; Z86.73 Personal history of transient ischemic attack (TIA), and cerebral infarction without residual deficits; Z79.82 Long term (current) use of aspirin; Z79.4 Long term (current) use of insulin; Z79.01 Long term (current) use of anticoagulants; Z79.51 Long term (current) use of inhaled steroids; Z79.899 Other long term (current) drug therapy
CPT/HCPCS: 36415; 71045; 80053; 82553; 82805; 83880; 84484; 85025; 85610; 85730; 93005; 94640; 94660; 96365; 96372; 96375; J1650; J1940; J3475; J7512; J7611; J7620; U0002

== ENCOUNTER 2022-01-08 05:13 | Inpatient (IN) | payer OTHER ==
[2022-01-08] MEDS ORDERED: Furosemide 100 MG/10 ML VIAL ONE (05:32)
[2022-01-08 06:02] LABS: #Basophils 0.1 10x3/uL (0.0-0.2); #Eosinphils 0.4 10x3/uL (0.0-0.5); #Monocytes 0.8 10x3/uL (0.0-1.1); #Neutrophils 3.9 10x3/uL (1.5-8.4); %Basophils 0.7 % (0.0-2.0); %Eosinophils 5.9 % (0.0-6.0); %Lymphocytes 23.5 % (18.0-47.0); %Monocytes 12.3 % (0.0-10.0); %Neutrophils 57.5 % (40.0-75.0); Hemoglobin 11.8 g/dL (13.5-17.5); Mean Corpuscular HGB CONC 31.5 g/dL (32.0-36.0); Mean Corpuscular Hemoglobin 23.8 pg (27.0-33.0); Mean Corpuscular Volume 75.8 fl (81.2-95.1); Platelet Count 318 10x3/uL (150-450); RBC Distribution Width 19.9 % (11.5-14.5); Red Blood Cell (RBC) Count 4.95 10x6/uL (4.32-5.72); White Blood Cell (WBC) Count 6.7 10x3/uL (3.5-10.5)
[2022-01-08 06:14] LABS: ALT (SGPT) 37 U/L (8-55); AST (SGOT) 24 U/L (5-34); Albumin 3.5 g/dL (3.4-4.8); Alkaline Phosphatase 126 U/L (40-110); Anion Gap 12 mmol/L (10-20); BUN (Urea Nitrogen) 35 mg/dL (8.4-25.7); Bilirubin, Total 0.3 mg/dL (0.2-1.2); Calc. Creatinine Clearance 0 mL/min (70-130); Calcium 8.8 mg/dL (7.8-10.44); Carbon Dioxide 31 mmol/L (23-31); Chloride 102 mmol/L (98-107); Estimated GFR 33; Globulin 3.8 g/dL (2.4-3.5); Glucose 86 mg/dL (80-115); Potassium 3.7 mmol/L (3.5-5.1); Protein, Total 7.3 g/dL (5.8-8.1); Sodium 141 mmol/L (136-145)
[2022-01-08 06:28] LABS: SARS-CoV-2 NAA Rapid Test Not Detected (NotDetected)
[2022-01-08 07:29] LABS: INR-International Normal Ratio 2.9; PTT 40.1 sec (22.0-33.0); Prothrombin Time 29.6 sec (9.5-12.1)
[2022-01-08] MEDS ORDERED: Albuterol Sulfate 2.5 mg/3 ml Neb NEB PRN (09:43)
[2022-01-08] MEDS ORDERED: Senokot S 8.6-50 MG TAB PO PRN (09:44)
[2022-01-08] MEDS ORDERED: Ondansetron PF 4 MG/2 ML Vial IVP PRN (09:44)
[2022-01-08] MEDS ORDERED: Ondansetron ODT 4 MG TAB PO PRN (09:44)
[2022-01-08] MEDS ORDERED: Nitroglycerin 0.4 MG TAB (25 Tab Bottle) SL PRN (09:48)
[2022-01-08 10:23] LABS: Magnesium 2.2 mg/dL (1.6-2.6)
[2022-01-08 10:29] LABS: Troponin I 0.017 ng/mL (< 0.028)
[2022-01-08 10:56] VITALS: BMI 44.9
[2022-01-08] MEDS: Furosemide 40 MG/4 ML VIAL SLOW IVP SCH (14:23)
[2022-01-08] MEDS ORDERED: Warfarin Sodium 2.5 MG TAB PO SCH (17:00)
[2022-01-08] MEDS ORDERED: Famotidine 20 MG TAB PO SCH (21:00)
[2022-01-08] MEDS: Divalproex Sodium 250 MG (DR) TAB PO SCH (21:32)
[2022-01-08] MEDS: hydrALAZINE 25 MG TAB PO SCH (21:32)
[2022-01-08] MEDS: Terazosin HCl 5 MG CAP PO SCH (21:32)
[2022-01-08] MEDS: Citalopram 20 MG TAB PO SCH (21:32)
[2022-01-08] MEDS: risperiDONE 1 MG TAB PO SCH (21:32)
[2022-01-08] MEDS: Atorvastatin Calcium 40 MG TAB PO SCH (21:32)
[2022-01-08] MEDS: Latanoprost 0.005% Ophth Soln 2.5 ml Bottle EA EYE SCH (21:33)
[2022-01-08] MEDS: Amiodarone 200 MG TAB PO SCH (21:33)
[2022-01-08] MEDS: Acetaminophen 325 MG TAB PO PRN (21:41)
[2022-01-09 04:29] LABS: #Eosinphils 0.4 10x3/uL (0.0-0.5); #Monocytes 0.8 10x3/uL (0.0-1.1); #Neutrophils 3.7 10x3/uL (1.5-8.4); %Basophils 0.5 % (0.0-2.0); %Eosinophils 5.5 % (0.0-6.0); %Lymphocytes 24.1 % (18.0-47.0); %Monocytes 11.7 % (0.0-10.0); Hemoglobin 11.9 g/dL (13.5-17.5); Mean Corpuscular HGB CONC 31.1 g/dL (32.0-36.0); Mean Corpuscular Hemoglobin 23.9 pg (27.0-33.0); Mean Corpuscular Volume 76.9 fl (81.2-95.1); Mean Platelet Volume 9.5 fl (7.4-10.4); Platelet Count 307 10x3/uL (150-450); RBC Distribution Width 19.2 % (11.5-14.5); Red Blood Cell (RBC) Count 4.98 10x6/uL (4.32-5.72); White Blood Cell (WBC) Count 6.4 10x3/uL (3.5-10.5)
[2022-01-09 04:46] LABS: INR-International Normal Ratio 2.2; Prothrombin Time 23.1 sec (9.5-12.1)
[2022-01-09 04:47] LABS: Anion Gap 12 mmol/L (10-20); BUN (Urea Nitrogen) 32 mg/dL (8.4-25.7); Calc. Creatinine Clearance 78 mL/min (70-130); Carbon Dioxide 30 mmol/L (23-31); Chloride 103 mmol/L (98-107); Estimated GFR 39; Glucose 193 mg/dL (80-115); Potassium 4.2 mmol/L (3.5-5.1); Sodium 141 mmol/L (136-145)
[2022-01-09] MEDS: Furosemide 40 MG/4 ML VIAL SLOW IVP SCH ×2 (05:49→14:56)
[2022-01-09] MEDS: Amlodipine 10 MG TAB PO SCH (09:03)
[2022-01-09] MEDS: Amiodarone 200 MG TAB PO SCH ×2 (09:03→21:26)
[2022-01-09] MEDS: Allopurinol 100 MG TAB PO SCH (09:03)
[2022-01-09] MEDS: Acetaminophen 325 MG TAB PO PRN ×2 (09:03→21:26)
[2022-01-09] MEDS: Divalproex Sodium 250 MG (DR) TAB PO SCH ×2 (09:03→21:28)
[2022-01-09] MEDS: Lisinopril 5 MG TAB PO SCH (09:03)
[2022-01-09] MEDS: Aspirin 81 mg Enteric Coated Tablet PO SCH (09:04)
[2022-01-09] MEDS: hydrALAZINE 25 MG TAB PO SCH ×2 (09:04→21:27)
[2022-01-09] MEDS: Loratadine 10 MG TAB PO SCH (09:04)
[2022-01-09] MEDS ORDERED: Warfarin Sodium 5 MG TAB PO SCH (17:00)
[2022-01-09] MEDS: Latanoprost 0.005% Ophth Soln 2.5 ml Bottle EA EYE SCH (21:25)
[2022-01-09] MEDS: Citalopram 20 MG TAB PO SCH (21:26)
[2022-01-09] MEDS: Atorvastatin Calcium 40 MG TAB PO SCH (21:26)
[2022-01-09] MEDS: risperiDONE 1 MG TAB PO SCH (21:27)
[2022-01-09] MEDS: Terazosin HCl 5 MG CAP PO SCH (21:27)
[2022-01-09] MEDS ORDERED: Dextrose 50% Abboject 50 ML SYRINGE IVP PRN (22:15)
[2022-01-09] MEDS ORDERED: Dextrose 5% in Water 1,000 ML IV PRN (22:15)
[2022-01-09] MEDS: HumaLOG 300 UNITS/3 ML VIAL SC PRN (23:02)
[2022-01-10 05:25] LABS: #Basophils 0.1 10x3/uL (0.0-0.2); #Eosinphils 0.4 10x3/uL (0.0-0.5); #Monocytes 0.7 10x3/uL (0.0-1.1); #Neutrophils 3.6 10x3/uL (1.5-8.4); %Basophils 0.8 % (0.0-2.0); %Eosinophils 6.8 % (0.0-6.0); %Lymphocytes 24.3 % (18.0-47.0); %Neutrophils 56.8 % (40.0-75.0); Hemoglobin 11.5 g/dL (13.5-17.5); Mean Corpuscular HGB CONC 31.7 g/dL (32.0-36.0); Mean Corpuscular Volume 75.6 fl (81.2-95.1); Mean Platelet Volume 9.6 fl (7.4-10.4); Platelet Count 289 10x3/uL (150-450); RBC Distribution Width 19.8 % (11.5-14.5); White Blood Cell (WBC) Count 6.4 10x3/uL (3.5-10.5)
[2022-01-10 05:29] LABS: Prothrombin Time 21.3 sec (9.5-12.1)
[2022-01-10 05:34] LABS: Anion Gap 13 mmol/L (10-20); BUN (Urea Nitrogen) 36 mg/dL (8.4-25.7); Calc. Creatinine Clearance 73 mL/min (70-130); Calcium 8.9 mg/dL (7.8-10.44); Carbon Dioxide 29 mmol/L (23-31); Chloride 101 mmol/L (98-107); Estimated GFR 37; Glucose 295 mg/dL (80-115); Potassium 4.3 mmol/L (3.5-5.1); Sodium 139 mmol/L (136-145)
[2022-01-10] MEDS: Furosemide 40 MG/4 ML VIAL SLOW IVP SCH (05:48)
[2022-01-10] MEDS: HumaLOG 300 UNITS/3 ML VIAL SC PRN ×2 (06:00→21:38)
[2022-01-10] MEDS: Allopurinol 100 MG TAB PO SCH (09:38)
[2022-01-10] MEDS: hydrALAZINE 25 MG TAB PO SCH ×2 (09:38→21:25)
[2022-01-10] MEDS: diphenhydrAMINE 25 MG CAP PO SCH ×2 (09:39→21:23)
[2022-01-10] MEDS: Aspirin 81 mg Enteric Coated Tablet PO SCH (09:39)
[2022-01-10] MEDS: Docusate 100 MG CAP PO SCH ×2 (09:39→21:30)
[2022-01-10] MEDS: Lisinopril 5 MG TAB PO SCH (09:40)
[2022-01-10] MEDS: Amlodipine 10 MG TAB PO SCH (09:40)
[2022-01-10] MEDS: Loratadine 10 MG TAB PO SCH (09:40)
[2022-01-10] MEDS: Amiodarone 200 MG TAB PO SCH ×2 (09:40→21:21)
[2022-01-10] MEDS: Acetaminophen 325 MG TAB PO PRN ×2 (09:40→23:08)
[2022-01-10] MEDS: Divalproex Sodium 250 MG (DR) TAB PO SCH ×2 (09:43→21:31)
[2022-01-10] MEDS: Ciprofloxacin 0.3% Ophth Soln 2.5 ml Bottle EA EYE SCH ×2 (10:20→21:34)
[2022-01-10] MEDS: Bumetanide 1 MG TAB PO SCH ×2 (10:20→21:19)
[2022-01-10] MEDS: Mupirocin 2% Ointment 22 GM Tube TOP SCH ×3 (10:20→21:35)
[2022-01-10] MEDS ORDERED: Warfarin Sodium 2.5 MG TAB PO SCH (17:00)
[2022-01-10] MEDS: Insulin Regular 300 UNITS/3 ML VIAL SC SCH (17:38)
[2022-01-10] MEDS: risperiDONE 1 MG TAB PO SCH (21:21)
[2022-01-10] MEDS: Atorvastatin Calcium 40 MG TAB PO SCH (21:23)
[2022-01-10] MEDS: Terazosin HCl 5 MG CAP PO SCH (21:25)
[2022-01-10] MEDS: Latanoprost 0.005% Ophth Soln 2.5 ml Bottle EA EYE SCH (21:27)
[2022-01-10] MEDS: Citalopram 20 MG TAB PO SCH (21:31)
[2022-01-11 04:53] LABS: #Basophils 0.1 10x3/uL (0.0-0.2); #Eosinphils 0.4 10x3/uL (0.0-0.5); #Monocytes 0.6 10x3/uL (0.0-1.1); #Neutrophils 3.6 10x3/uL (1.5-8.4); %Basophils 0.8 % (0.0-2.0); %Lymphocytes 25.4 % (18.0-47.0); %Neutrophils 56.5 % (40.0-75.0); Hemoglobin 11.4 g/dL (13.5-17.5); Mean Corpuscular HGB CONC 31.4 g/dL (32.0-36.0); Mean Corpuscular Hemoglobin 24.1 pg (27.0-33.0); Mean Corpuscular Volume 76.7 fl (81.2-95.1); Mean Platelet Volume 10.8 fl (7.4-10.4); Platelet Count 322 10x3/uL (150-450); RBC Distribution Width 19.1 % (11.5-14.5); Red Blood Cell (RBC) Count 4.73 10x6/uL (4.32-5.72); White Blood Cell (WBC) Count 6.3 10x3/uL (3.5-10.5)
[2022-01-11 05:12] LABS: Prothrombin Time 21.3 sec (9.5-12.1)
[2022-01-11 05:21] LABS: Anion Gap 13 mmol/L (10-20); BUN (Urea Nitrogen) 34 mg/dL (8.4-25.7); Calc. Creatinine Clearance 70 mL/min (70-130); Carbon Dioxide 32 mmol/L (23-31); Chloride 99 mmol/L (98-107); Estimated GFR 35; Glucose 276 mg/dL (80-115); Potassium 4.2 mmol/L (3.5-5.1); Sodium 140 mmol/L (136-145)
[2022-01-11] MEDS: HumaLOG 300 UNITS/3 ML VIAL SC PRN ×2 (05:44→12:34)
[2022-01-11] MEDS: Allopurinol 100 MG TAB PO SCH (09:10)
[2022-01-11] MEDS: Bumetanide 1 MG TAB PO SCH (09:10)
[2022-01-11] MEDS: Insulin Regular 300 UNITS/3 ML VIAL SC SCH (09:10)
[2022-01-11] MEDS: Divalproex Sodium 250 MG (DR) TAB PO SCH (09:11)
[2022-01-11] MEDS: diphenhydrAMINE 25 MG CAP PO SCH (09:11)
[2022-01-11] MEDS: Amiodarone 200 MG TAB PO SCH (09:11)
[2022-01-11] MEDS: Docusate 100 MG CAP PO SCH (09:11)
[2022-01-11] MEDS: Lisinopril 5 MG TAB PO SCH (09:11)
[2022-01-11] MEDS: Amlodipine 10 MG TAB PO SCH (09:11)
[2022-01-11] MEDS: Loratadine 10 MG TAB PO SCH (09:11)
[2022-01-11] MEDS: Aspirin 81 mg Enteric Coated Tablet PO SCH (09:11)
[2022-01-11] MEDS: hydrALAZINE 25 MG TAB PO SCH (09:11)
[2022-01-11] MEDS: Mupirocin 2% Ointment 22 GM Tube TOP SCH ×2 (09:12→15:40)
[2022-01-11] MEDS: Ciprofloxacin 0.3% Ophth Soln 2.5 ml Bottle EA EYE SCH (09:12)
[2022-01-11 12:42] VITALS: TEMP 97.1
[2022-01-11 13:30] VITALS: BP 129/57
== END 2022-01-11 16:13 | DRG 291 ==
LOC: CSHERS 05:13 → CSHTELE 09:31 → EEVIPCON 09:31
PROVIDERS: ADMIT Family Medicine; ATTEND Family Medicine
DX: I13.0 Hypertensive heart and chronic kidney disease with heart failure and stage 1 through stage 4 chronic kidney disease, or unspecified chronic kidney disease (principal); I50.33 Acute on chronic diastolic (congestive) heart failure; J96.21 Acute and chronic respiratory failure with hypoxia; J44.1 Chronic obstructive pulmonary disease with (acute) exacerbation; I48.20 Chronic atrial fibrillation, unspecified; N40.0 Benign prostatic hyperplasia without lower urinary tract symptoms; I25.10 Atherosclerotic heart disease of native coronary artery without angina pectoris; E78.5 Hyperlipidemia, unspecified; K21.9 Gastro-esophageal reflux disease without esophagitis; E11.22 Type 2 diabetes mellitus with diabetic chronic kidney disease; F25.9 Schizoaffective disorder, unspecified; F32.A Depression, unspecified; I16.0 Hypertensive urgency; N18.30 Chronic kidney disease, stage 3 unspecified; Z20.822 Contact with and (suspected) exposure to COVID-19; Z79.82 Long term (current) use of aspirin; Z79.899 Other long term (current) drug therapy; Z79.4 Long term (current) use of insulin; Z79.01 Long term (current) use of anticoagulants; Z86.73 Personal history of transient ischemic attack (TIA), and cerebral infarction without residual deficits; Z95.1 Presence of aortocoronary bypass graft; Z99.81 Dependence on supplemental oxygen
CPT/HCPCS: 36415; 36416; 71045; 80048; 80053; 83735; 83880; 84484; 85025; 85610; 85730; 93005; 94640; 94760; 96374; J1815; J1940; J7620; U0002

== ENCOUNTER 2022-02-06 15:10 | Inpatient (IN) | payer OTHER ==
[2022-02-06 15:33] LABS: #Basophils 0.1 10x3/uL (0.0-0.2); #Eosinphils 0.3 10x3/uL (0.0-0.5); %Basophils 0.9 % (0.0-2.0); %Eosinophils 4.5 % (0.0-6.0); %Lymphocytes 24.5 % (18.0-47.0); %Monocytes 13.9 % (0.0-10.0); %Neutrophils 56.1 % (40.0-75.0); Hemoglobin 11.2 g/dL (13.5-17.5); Mean Corpuscular Hemoglobin 23.6 pg (27.0-33.0); Mean Platelet Volume 9.9 fl (7.4-10.4); Platelet Count 279 10x3/uL (150-450); RBC Distribution Width 18.5 % (11.5-14.5); Red Blood Cell (RBC) Count 4.75 10x6/uL (4.32-5.72); White Blood Cell (WBC) Count 7.1 10x3/uL (3.5-10.5)
[2022-02-06 15:49] LABS: ALT (SGPT) 59 U/L (8-55); AST (SGOT) 40 U/L (5-34); Albumin 3.4 g/dL (3.4-4.8); Alkaline Phosphatase 139 U/L (40-110); Anion Gap 15 mmol/L (10-20); BUN (Urea Nitrogen) 32 mg/dL (8.4-25.7); Bilirubin, Total 0.3 mg/dL (0.2-1.2); Calc. Creatinine Clearance 0 mL/min (70-130); Calcium 8.4 mg/dL (7.8-10.44); Carbon Dioxide 25 mmol/L (23-31); Chloride 105 mmol/L (98-107); Estimated GFR 29; Globulin 3.3 g/dL (2.4-3.5); Glucose 67 mg/dL (80-115); Potassium 4.7 mmol/L (3.5-5.1); Protein, Total 6.7 g/dL (5.8-8.1); Sodium 140 mmol/L (136-145)
[2022-02-06 15:52] LABS: Actual Bicarbonate (HCO3v) 30 mEq/L (22-28); Base Excess 4.9 mEq/L (-2.0 to +3.0); Calcium, Ionized (venous) 1.07 mmol/L (1.16-1.32); Chloride (VBG) 103 mmol/L (98-106); Hemoglobin (Hb) 12.3 g/dL (12.6-17.4); Potassium (VBG) 4.32 mmol/L (3.70-5.30); Puncture Site Other Site; RapidComm Collect By CBN; Sodium 139.9 mmol/L (133-146); pH (venous) 7.43 (7.32-7.43)
[2022-02-06] MEDS ORDERED: Furosemide 40 MG/4 ML VIAL ONE (15:54)
[2022-02-06] MEDS ORDERED: Nitroglycerin 2% Ointment 1 INCH/1 GM Packet ONE (15:55)
[2022-02-06 16:21] LABS: SARS-CoV-2 NAA Rapid Test Not Detected (NotDetected)
[2022-02-06 16:22] LABS: CKMB 2.4 ng/mL (0-6.6)
[2022-02-06] MEDS ORDERED: Dextrose 50% Abboject 50 ML SYRINGE ONE (16:52)
[2022-02-06 17:29] LABS: PTT 48.1 sec (22.0-33.0); Prothrombin Time 50.9 sec (9.5-12.1)
[2022-02-06 17:32] LABS: INR-International Normal Ratio 5.1
[2022-02-06] MEDS ORDERED: Dextrose 5% in Water 1,000 ML IV PRN (18:12)
[2022-02-06] MEDS ORDERED: Dextrose 50% Abboject 50 ML SYRINGE SLOW IVP PRN (18:12)
[2022-02-06] MEDS ORDERED: Calcium Carbonate 500 MG ChewTAB PO PRN (18:25)
[2022-02-06] MEDS: Mometasone/Formoterol 200/5 60 PUFF INH SCH (18:30)
[2022-02-06] MEDS: Nitroglycerin 2% Ointment 1 INCH/1 GM Packet TOP SCH (19:47)
[2022-02-06] MEDS: Atorvastatin Calcium 40 MG TAB PO SCH (20:50)
[2022-02-06] MEDS: Citalopram 20 MG TAB PO SCH (20:50)
[2022-02-06] MEDS: Amiodarone 200 MG TAB PO SCH (20:51)
[2022-02-06] MEDS: hydrALAZINE 25 MG TAB PO SCH (20:51)
[2022-02-06] MEDS: Terazosin HCl 1 MG CAP PO SCH (20:51)
[2022-02-06] MEDS: Divalproex Sodium 250 MG (DR) TAB PO SCH (20:51)
[2022-02-06] MEDS: Furosemide 40 MG/4 ML VIAL SLOW IVP SCH (21:08)
[2022-02-06] MEDS: diphenhydrAMINE 50 MG CAP PO PRN (21:34)
[2022-02-06 22:39] LABS: Troponin I 0.034 ng/mL (< 0.028)
[2022-02-07] MEDS: Insulin Regular 300 UNITS/3 ML VIAL SC PRN ×5 (00:14→17:27)
[2022-02-07] MEDS: Nitroglycerin 2% Ointment 1 INCH/1 GM Packet TOP SCH (02:02)
[2022-02-07 04:08] LABS: #Neutrophils 4.2 10x3/uL (1.5-8.4); %Basophils 0.2 % (0.0-2.0); %Lymphocytes 10.8 % (18.0-47.0); %Monocytes 0.6 % (0.0-10.0); %Neutrophils 88.2 % (40.0-75.0); Hemoglobin 12.2 g/dL (13.5-17.5); Mean Corpuscular HGB CONC 31.2 g/dL (32.0-36.0); Mean Corpuscular Hemoglobin 23.3 pg (27.0-33.0); Mean Corpuscular Volume 74.8 fl (81.2-95.1); Mean Platelet Volume 10.2 fl (7.4-10.4); Platelet Count 289 10x3/uL (150-450); RBC Distribution Width 19.3 % (11.5-14.5); Red Blood Cell (RBC) Count 5.23 10x6/uL (4.32-5.72); White Blood Cell (WBC) Count 4.7 10x3/uL (3.5-10.5)
[2022-02-07 04:24] LABS: ALT (SGPT) 59 U/L (8-55); AST (SGOT) 32 U/L (5-34); Albumin 3.5 g/dL (3.4-4.8); Alkaline Phosphatase 151 U/L (40-110); Anion Gap 15 mmol/L (10-20); BUN (Urea Nitrogen) 32 mg/dL (8.4-25.7); Bilirubin, Total 0.3 mg/dL (0.2-1.2); Calc. Creatinine Clearance 68 mL/min (70-130); Calcium 8.9 mg/dL (7.8-10.44); Carbon Dioxide 28 mmol/L (23-31); Chloride 102 mmol/L (98-107); Estimated GFR 31; Glucose 290 mg/dL (80-115); Magnesium 2.2 mg/dL (1.6-2.6); Potassium 4.9 mmol/L (3.5-5.1); Protein, Total 7.5 g/dL (5.8-8.1); Sodium 140 mmol/L (136-145)
[2022-02-07 04:26] LABS: Prothrombin Time 52.6 sec (9.5-12.1)
[2022-02-07 04:29] LABS: INR-International Normal Ratio 5.3
[2022-02-07] MEDS: Furosemide 40 MG/4 ML VIAL SLOW IVP SCH ×2 (05:08→15:10)
[2022-02-07] MEDS: Mometasone/Formoterol 200/5 60 PUFF INH SCH ×2 (08:00→21:00)
[2022-02-07] MEDS ORDERED: Lantus 1000 UNITS/10 ML VIAL SC SCH (10:30)
[2022-02-07 11:16] LABS: Actual Bicarbonate (HCO3v) 28 mEq/L (22-28); Calcium, Ionized (venous) 1.15 mmol/L (1.16-1.32); Chloride (VBG) 100 mmol/L (98-106); Hemoglobin (Hb) 13.8 g/dL (12.6-17.4); Potassium (VBG) 4.74 mmol/L (3.70-5.30); Puncture Site Other Site; RapidComm Collect By CBN; Sodium 138.7 mmol/L (133-146); pH (venous) 7.39 (7.32-7.43)
[2022-02-07] MEDS ORDERED: Erythromycin Base 0.5% Oint 1 GM TUBE EA EYE SCH (11:30)
[2022-02-07] MEDS: Divalproex Sodium 250 MG (DR) TAB PO SCH ×2 (12:29→22:27)
[2022-02-07] MEDS: Aspirin 81 mg Enteric Coated Tablet PO SCH (12:30)
[2022-02-07] MEDS: hydrALAZINE 25 MG TAB PO SCH ×3 (12:31→21:35)
[2022-02-07] MEDS: Amiodarone 200 MG TAB PO SCH ×2 (12:32→21:36)
[2022-02-07] MEDS: Senokot S 8.6-50 MG TAB PO SCH (12:33)
[2022-02-07] MEDS: Carvedilol 6.25 MG TAB PO SCH (17:25)
[2022-02-07] MEDS ORDERED: Heparin 5,000 UNITS/ML VIAL SC SCH (21:00)
[2022-02-07] MEDS: Citalopram 20 MG TAB PO SCH (21:36)
[2022-02-07] MEDS: Atorvastatin Calcium 40 MG TAB PO SCH (21:36)
[2022-02-07] MEDS: risperiDONE 1 MG TAB PO SCH (21:36)
[2022-02-07] MEDS: Terazosin HCl 1 MG CAP PO SCH (21:36)
[2022-02-07] MEDS: Erythromycin Base 0.5% Oint 1 GM TUBE EA EYE SCH (21:37)
[2022-02-07] MEDS: diphenhydrAMINE 50 MG CAP PO PRN (22:27)
[2022-02-08] MEDS: Insulin Regular 300 UNITS/3 ML VIAL SC PRN ×3 (00:49→21:53)
[2022-02-08 04:20] LABS: #Monocytes 0.9 10x3/uL (0.0-1.1); %Basophils 0.1 % (0.0-2.0); %Eosinophils 0.4 % (0.0-6.0); %Lymphocytes 14.2 % (18.0-47.0); %Monocytes 11.5 % (0.0-10.0); %Neutrophils 73.6 % (40.0-75.0); Hemoglobin 11.1 g/dL (13.5-17.5); Mean Corpuscular HGB CONC 31.3 g/dL (32.0-36.0); Mean Corpuscular Hemoglobin 23.2 pg (27.0-33.0); Mean Corpuscular Volume 74.1 fl (81.2-95.1); Mean Platelet Volume 10.5 fl (7.4-10.4); Platelet Count 325 10x3/uL (150-450); RBC Distribution Width 18.7 % (11.5-14.5); Red Blood Cell (RBC) Count 4.79 10x6/uL (4.32-5.72); White Blood Cell (WBC) Count 8.2 10x3/uL (3.5-10.5)
[2022-02-08 04:21] LABS: Actual Bicarbonate (HCO3v) 29 mEq/L (22-28); Base Excess 3.7 mEq/L (-2.0 to +3.0); Calcium, Ionized (venous) 1.15 mmol/L (1.16-1.32); Chloride (VBG) 100 mmol/L (98-106); Critical Notified By: CP.PH; Hemoglobin (Hb) 12.1 g/dL (12.6-17.4); Potassium (VBG) 4.95 mmol/L (3.70-5.30); Puncture Site Other Site; Sodium 137.5 mmol/L (133-146); pH (venous) 7.39 (7.32-7.43)
[2022-02-08 04:49] LABS: ALT (SGPT) 46 U/L (8-55); AST (SGOT) 22 U/L (5-34); Albumin 2.9 g/dL (3.4-4.8); Alkaline Phosphatase 130 U/L (40-110); Anion Gap 15 mmol/L (10-20); BUN (Urea Nitrogen) 46 mg/dL (8.4-25.7); Bilirubin, Total 0.3 mg/dL (0.2-1.2); Calc. Creatinine Clearance 58 mL/min (70-130); Calcium 8.8 mg/dL (7.8-10.44); Carbon Dioxide 29 mmol/L (23-31); Chloride 101 mmol/L (98-107); Estimated GFR 26; Globulin 3.7 g/dL (2.4-3.5); Glucose 296 mg/dL (80-115); Magnesium 2.3 mg/dL (1.6-2.6); Phosphorus 3.4 mg/dL (2.3-4.7); Potassium 5.1 mmol/L (3.5-5.1); Protein, Total 6.6 g/dL (5.8-8.1); Sodium 140 mmol/L (136-145)
[2022-02-08 04:53] LABS: Prothrombin Time 50.8 sec (9.5-12.1)
[2022-02-08 05:21] LABS: INR-International Normal Ratio 5.1
[2022-02-08] MEDS: Mometasone/Formoterol 200/5 60 PUFF INH SCH ×2 (07:45→20:15)
[2022-02-08] MEDS ORDERED: Lantus 1000 UNITS/10 ML VIAL SC SCH ×2 (09:00)
[2022-02-08] MEDS: Furosemide 40 MG TAB PO SCH ×2 (10:12→13:53)
[2022-02-08] MEDS: hydrALAZINE 25 MG TAB PO SCH ×3 (10:12→21:50)
[2022-02-08] MEDS: Senokot S 8.6-50 MG TAB PO SCH (10:13)
[2022-02-08] MEDS: Carvedilol 6.25 MG TAB PO SCH ×2 (10:13→17:34)
[2022-02-08] MEDS: Amiodarone 200 MG TAB PO SCH ×2 (10:14→21:50)
[2022-02-08] MEDS: Divalproex Sodium 250 MG (DR) TAB PO SCH ×2 (10:14→21:50)
[2022-02-08] MEDS: Aspirin 81 mg Enteric Coated Tablet PO SCH (10:14)
[2022-02-08] MEDS: Erythromycin Base 0.5% Oint 1 GM TUBE EA EYE SCH ×2 (10:15→21:50)
[2022-02-08] MEDS: diphenhydrAMINE 50 MG CAP PO PRN ×2 (10:29→21:58)
[2022-02-08 11:24] LABS: Chlam.trachomatis by PCR,Urine Not Detected (NotDetected)
[2022-02-08] MEDS ORDERED: Furosemide 40 MG/4 ML VIAL SLOW IVP SCH (17:00)
[2022-02-08 18:10] LABS: Creatinine, Urine 37.81 mg/dL (63-166); Protein, Urine Random Quant Less than 10 mg/dL (1-14)
[2022-02-08] MEDS: Citalopram 20 MG TAB PO SCH (21:50)
[2022-02-08] MEDS: Terazosin HCl 1 MG CAP PO SCH (21:50)
[2022-02-08] MEDS: risperiDONE 1 MG TAB PO SCH (21:50)
[2022-02-08] MEDS: Atorvastatin Calcium 40 MG TAB PO SCH (21:50)
[2022-02-08] MEDS: Acetaminophen 325 MG TAB PO PRN (21:58)
[2022-02-09] MEDS: Insulin Regular 300 UNITS/3 ML VIAL SC PRN ×4 (01:32→21:05)
[2022-02-09 04:42] LABS: INR-International Normal Ratio 2.8; Prothrombin Time 28.3 sec (9.5-12.1)
[2022-02-09] MEDS: Furosemide 40 MG/4 ML VIAL SLOW IVP SCH ×2 (05:20→16:15)
[2022-02-09] MEDS: hydrALAZINE 20 MG/ML VIAL SLOW IVP PRN (06:30)
[2022-02-09] MEDS: Mometasone/Formoterol 200/5 60 PUFF INH SCH ×2 (07:15→20:25)
[2022-02-09] MEDS ORDERED: Insulin Regular 300 UNITS/3 ML VIAL SC PRN (07:54)
[2022-02-09] MEDS ORDERED: Lantus 1000 UNITS/10 ML VIAL SC SCH (09:00)
[2022-02-09 09:16] LABS: Anion Gap 13 mmol/L (10-20); BUN (Urea Nitrogen) 47 mg/dL (8.4-25.7); Calc. Creatinine Clearance 65 mL/min (70-130); Calcium 9.2 mg/dL (7.8-10.44); Carbon Dioxide 32 mmol/L (23-31); Chloride 100 mmol/L (98-107); Estimated GFR 30; Glucose 183 mg/dL (80-115); Potassium 4.5 mmol/L (3.5-5.1); Sodium 140 mmol/L (136-145)
[2022-02-09] MEDS: Amiodarone 200 MG TAB PO SCH ×2 (09:34→21:06)
[2022-02-09] MEDS: Aspirin 81 mg Enteric Coated Tablet PO SCH (09:35)
[2022-02-09] MEDS: Carvedilol 6.25 MG TAB PO SCH ×2 (09:35→16:15)
[2022-02-09] MEDS: Senokot S 8.6-50 MG TAB PO SCH (09:35)
[2022-02-09] MEDS: hydrALAZINE 25 MG TAB PO SCH ×3 (09:35→21:07)
[2022-02-09] MEDS: Erythromycin Base 0.5% Oint 1 GM TUBE EA EYE SCH ×2 (09:39→21:03)
[2022-02-09] MEDS: Divalproex Sodium 250 MG (DR) TAB PO SCH ×2 (09:39→21:04)
[2022-02-09] MEDS: Acetaminophen 325 MG TAB PO PRN ×2 (09:47→22:26)
[2022-02-09] MEDS: diphenhydrAMINE 50 MG CAP PO PRN ×2 (09:48→22:26)
[2022-02-09] MEDS ORDERED: Warfarin Sodium 2.5 MG TAB PO SCH (17:00)
[2022-02-09] MEDS: Citalopram 20 MG TAB PO SCH (21:06)
[2022-02-09] MEDS: risperiDONE 1 MG TAB PO SCH (21:06)
[2022-02-09] MEDS: Atorvastatin Calcium 40 MG TAB PO SCH (21:06)
[2022-02-09] MEDS: Terazosin HCl 1 MG CAP PO SCH (21:08)
[2022-02-10 04:46] LABS: #Eosinphils 0.4 10x3/uL (0.0-0.5); #Monocytes 0.8 10x3/uL (0.0-1.1); #Neutrophils 4.2 10x3/uL (1.5-8.4); %Basophils 0.6 % (0.0-2.0); %Lymphocytes 21.9 % (18.0-47.0); %Monocytes 11.3 % (0.0-10.0); %Neutrophils 59.9 % (40.0-75.0); Mean Corpuscular HGB CONC 31.1 g/dL (32.0-36.0); Mean Corpuscular Hemoglobin 23.2 pg (27.0-33.0); Mean Corpuscular Volume 74.5 fl (81.2-95.1); Mean Platelet Volume 10.2 fl (7.4-10.4); Platelet Count 321 10x3/uL (150-450); RBC Distribution Width 18.4 % (11.5-14.5); Red Blood Cell (RBC) Count 4.75 10x6/uL (4.32-5.72)
[2022-02-10 04:50] LABS: Anion Gap 16 mmol/L (10-20); BUN (Urea Nitrogen) 50 mg/dL (8.4-25.7); Calc. Creatinine Clearance 64 mL/min (70-130); Calcium 8.8 mg/dL (7.8-10.44); Carbon Dioxide 31 mmol/L (23-31); Chloride 98 mmol/L (98-107); Estimated GFR 30; Glucose 256 mg/dL (80-115); INR-International Normal Ratio 1.7; Potassium 4.6 mmol/L (3.5-5.1); Prothrombin Time 18.3 sec (9.5-12.1); Sodium 140 mmol/L (136-145)
[2022-02-10] MEDS: Furosemide 40 MG/4 ML VIAL SLOW IVP SCH ×2 (06:37→18:39)
[2022-02-10] MEDS: hydrALAZINE 20 MG/ML VIAL SLOW IVP PRN (06:38)
[2022-02-10] MEDS: Insulin Regular 300 UNITS/3 ML VIAL SC PRN ×3 (06:39→21:49)
[2022-02-10] MEDS: Mometasone/Formoterol 200/5 60 PUFF INH SCH ×2 (08:25→19:30)
[2022-02-10] MEDS: Divalproex Sodium 250 MG (DR) TAB PO SCH ×2 (12:11→21:46)
[2022-02-10] MEDS: hydrALAZINE 25 MG TAB PO SCH ×3 (12:12→21:46)
[2022-02-10] MEDS: Amiodarone 200 MG TAB PO SCH ×2 (12:13→21:47)
[2022-02-10] MEDS: Carvedilol 6.25 MG TAB PO SCH ×2 (12:13→18:42)
[2022-02-10] MEDS: Aspirin 81 mg Enteric Coated Tablet PO SCH (12:13)
[2022-02-10] MEDS: Senokot S 8.6-50 MG TAB PO SCH (12:13)
[2022-02-10] MEDS: Lantus 1000 UNITS/10 ML VIAL SC SCH ×2 (12:14→23:16)
[2022-02-10] MEDS: Erythromycin Base 0.5% Oint 1 GM TUBE EA EYE SCH ×2 (12:14→21:48)
[2022-02-10] MEDS: Acetaminophen 325 MG TAB PO PRN ×2 (12:35→21:46)
[2022-02-10] MEDS: diphenhydrAMINE 50 MG CAP PO PRN ×2 (12:36→21:46)
[2022-02-10] MEDS ORDERED: Warfarin Sodium 5 MG TAB PO SCH (17:00)
[2022-02-10] MEDS: risperiDONE 1 MG TAB PO SCH (21:47)
[2022-02-10] MEDS: Atorvastatin Calcium 40 MG TAB PO SCH (21:47)
[2022-02-10] MEDS: Citalopram 20 MG TAB PO SCH (21:47)
[2022-02-10] MEDS: Terazosin HCl 1 MG CAP PO SCH (21:48)
[2022-02-11] MEDS: Furosemide 40 MG/4 ML VIAL SLOW IVP SCH ×2 (05:53→14:34)
[2022-02-11 06:04] LABS: INR-International Normal Ratio 1.3
[2022-02-11 06:09] LABS: Anion Gap 17 mmol/L (10-20); BUN (Urea Nitrogen) 45 mg/dL (8.4-25.7); Calc. Creatinine Clearance 67 mL/min (70-130); Calcium 8.9 mg/dL (7.8-10.44); Carbon Dioxide 31 mmol/L (23-31); Chloride 98 mmol/L (98-107); Estimated GFR 31; Glucose 224 mg/dL (80-115); Potassium 4.5 mmol/L (3.5-5.1); Sodium 141 mmol/L (136-145)
[2022-02-11] MEDS: Mometasone/Formoterol 200/5 60 PUFF INH SCH ×2 (07:15→19:26)
[2022-02-11 07:29] VITALS: BMI 46.7
[2022-02-11] MEDS: Aspirin 81 mg Enteric Coated Tablet PO SCH (09:13)
[2022-02-11] MEDS: Senokot S 8.6-50 MG TAB PO SCH (09:13)
[2022-02-11] MEDS: hydrALAZINE 25 MG TAB PO SCH ×3 (09:13→20:13)
[2022-02-11] MEDS: Divalproex Sodium 250 MG (DR) TAB PO SCH ×2 (09:14→20:14)
[2022-02-11] MEDS: Amiodarone 200 MG TAB PO SCH ×2 (09:14→20:14)
[2022-02-11] MEDS: Carvedilol 6.25 MG TAB PO SCH ×2 (09:14→16:56)
[2022-02-11] MEDS: Erythromycin Base 0.5% Oint 1 GM TUBE EA EYE SCH ×2 (09:15→20:15)
[2022-02-11] MEDS: diphenhydrAMINE 50 MG CAP PO PRN ×2 (09:27→20:44)
[2022-02-11] MEDS: Acetaminophen 325 MG TAB PO PRN ×2 (09:27→20:44)
[2022-02-11] MEDS: Lantus 1000 UNITS/10 ML VIAL SC SCH ×2 (09:28→20:16)
[2022-02-11] MEDS: Insulin Regular 300 UNITS/3 ML VIAL SC PRN ×2 (16:57→20:19)
[2022-02-11] MEDS ORDERED: Warfarin Sodium 10 MG TAB PO SCH (17:00)
[2022-02-11] MEDS: Atorvastatin Calcium 40 MG TAB PO SCH (20:14)
[2022-02-11] MEDS: risperiDONE 1 MG TAB PO SCH (20:14)
[2022-02-11] MEDS: Citalopram 20 MG TAB PO SCH (20:15)
[2022-02-11] MEDS: Terazosin HCl 1 MG CAP PO SCH (20:31)
[2022-02-11 22:35] VITALS: BP 142/64; TEMP 97.6
== END 2022-02-11 22:10 | disposition short-term general hospital (02) | DRG 280 ==
LOC: CSHERS 15:10 → CSHICU 18:03 → CSHTELE 02-07 18:49
PROVIDERS: ADMIT Internal Medicine; ATTEND Internal Medicine
DX: I13.0 Hypertensive heart and chronic kidney disease with heart failure and stage 1 through stage 4 chronic kidney disease, or unspecified chronic kidney disease (principal); I21.A1 Myocardial infarction type 2; I50.33 Acute on chronic diastolic (congestive) heart failure; J96.21 Acute and chronic respiratory failure with hypoxia; Z68.42 Body mass index [BMI] 45.0-49.9, adult; N17.9 Acute kidney failure, unspecified; N18.4 Chronic kidney disease, stage 4 (severe); J44.9 Chronic obstructive pulmonary disease, unspecified; G47.33 Obstructive sleep apnea (adult) (pediatric); I48.0 Paroxysmal atrial fibrillation; E11.22 Type 2 diabetes mellitus with diabetic chronic kidney disease; K21.9 Gastro-esophageal reflux disease without esophagitis; F41.9 Anxiety disorder, unspecified; N40.0 Benign prostatic hyperplasia without lower urinary tract symptoms; I25.10 Atherosclerotic heart disease of native coronary artery without angina pectoris; E78.5 Hyperlipidemia, unspecified; E66.01 Morbid (severe) obesity due to excess calories; H10.89 Other conjunctivitis; F20.9 Schizophrenia, unspecified; E11.65 Type 2 diabetes mellitus with hyperglycemia; E11.36 Type 2 diabetes mellitus with diabetic cataract; H26.9 Unspecified cataract; Z20.822 Contact with and (suspected) exposure to COVID-19; D63.1 Anemia in chronic kidney disease; Z91.010 Allergy to peanuts; Z95.1 Presence of aortocoronary bypass graft; Z98.890 Other specified postprocedural states; Z87.891 Personal history of nicotine dependence; Z79.84 Long term (current) use of oral hypoglycemic drugs; Z79.01 Long term (current) use of anticoagulants; Z99.81 Dependence on supplemental oxygen; Z79.899 Other long term (current) drug therapy; Z86.16 Personal history of COVID-19; Z79.82 Long term (current) use of aspirin; Z91.041 Radiographic dye allergy status; Z86.73 Personal history of transient ischemic attack (TIA), and cerebral infarction without residual deficits
CPT/HCPCS: 36415; 36416; 71045; 74150; 76700; 80048; 80053; 82553; 82570; 82805; 83735; 83880; 84100; 84145; 84156; 84484; 85025; 85610; 85730; 87491; 87591; 93005; 93306; 94640; 94660; 94664; 94760; 96374; J0360; J1815; J1940; J7620; J7999; U0002